=== PATIENT | male | born 1965 | race Caucasian/White ===

== ENCOUNTER → 2021-07-27 10:37 | Outpatient (CLI) | payer OTHER, SELFPAY ==
[2021-07-27 11:49] LABS: Basophils Absolute Auto 0 /uL (0-100); Basophils Percent Auto 0.6 % (0-2); Eosinophils Absolute Auto 100 /uL (0-450); Eosinophils Percent Auto 2.8 % (2-4); Hematocrit 53.8 % (41-53); Hemoglobin 18.6 g/dL (13.5-17.5); Lymphocytes Absolute Auto 1500 /uL (1100-4500); Lymphocytes Percent Auto 28.5 % (25-40); Mean Corpuscular HGB Conc 34.6 % (30-36); Mean Corpuscular Hemoglobin 30.7 PG (26-34); Mean Corpuscular Volume 88.9 fL (80-100); Monocytes Absolute Auto 400 /uL (0-900); Monocytes Percent Auto 7.7 % (3-14); Neutrophils Absolute Auto 3300 /uL (1500-7000); Neutrophils Percent Auto 60.4 % (50-75); Platelet Count 169 X10^3/uL (150-400); Red Blood Cell Count 6.05 X10^6/uL (4.5-5.9); Red Cell Distribution Width 14.1 % (11.6-14.8); White Blood Cell Count 5.4 X10^3/uL (4.5-11.0)
[2021-07-27 11:50] LABS: Add Manual Diff / Slide Review SLIDE REVIEW
[2021-07-27 12:02] LABS: BUN Creatinine Ratio 16.8 (6-22); Blood Urea Nitrogen 22 mg/dL (9-20); Calcium 9.2 mg/dL (8.4-10.2); Carbon Dioxide 29 mmol/L (22-32); Chloride 106 mmol/L (98-107); Estimated Glomerular Filt Rate 56.6 mL/min (>60); Glucose 97 mg/dL (70-100); HEMOLYSIS 21 (0-50); Potassium 4.6 mmol/L (3.4-5.1); Sodium 143 mmol/L (137-145)
[2021-07-27 12:13] LABS: RBC Morphology Normal Morphology
[2021-07-27 12:59] LABS: COVID19 -Nasal RAPID Negative (Negative)
== END ==
PROVIDERS: Family Medicine Sleep Medicine; PCP Physician Assistant Medical; Referring Provider Orthopaedic Surgery Orthopaedic Surgery of the Spine; Visit Provider Orthopaedic Surgery Orthopaedic Surgery of the Spine
DX: Z01.812 Encounter for preprocedural laboratory examination (principal); Z20.822 Contact with and (suspected) exposure to COVID-19
CPT/HCPCS: 36415; 80048; 85025; 87635; 93005; C9803

== ENCOUNTER 2021-07-30 12:37 | Day surgery (SDC) | payer OTHER, SELFPAY ==
[2021-07-25 07:48] VITALS: BMI 36.6
--- NOTE | 2021-07-30 | DI.RAD.S_ITS ---
PROCEDURE: XR LUMBAR SPINE 2-3V INDICATIONS: L5-S1 MICRODISECTOMY TECHNIQUE: 2 operative views of the lumbar spine were acquired. COMPARISON: None. FINDINGS: Operative imaging utilized for lumbar surgery demonstrates that the L5-S1 level has been localized posteriorly. IMPRESSION: Operative imaging demonstrates localization of L5-S1. Dictated by: Rick Hernandez M.D. on 07/30/2021 at 17:04 Approved by: Rick Hernandez M.D. on 07/30/2021 at 17:05
[2021-07-30 13:19] VITALS: BP 143/97; PULSE 72; RESP 16; TEMP 37.2; O2SAT 100; BMI 34.2
[2021-07-30] MEDS: LACTATED RINGERS 1,000 ML 42 ML IV ×2 (13:45→16:11)
--- NOTE | 2021-07-30 15:08 | PM.PREOP ---
Pre-operative Note COVID-19 COVID-19 status: Negative Result date/Date tested (Pos, Neg/Pending): 07/29/21 Criteria for continued procedure: Expected advancement of disease process, Possibility delay results in more complex future surgery or treatment, Increased loss of function, Continuing or worsening of significant or severe pain, Deterioration of the patient's condition or overall health and Delay expected to result in less-positive ultimate med/surg outcome Interval Note History & Physical reviewed/Exam performed by Physician: Yes Changes to H&P: No
[2021-07-30] MEDS: CEFAZOLIN 2 GM/20 ML SYRINGE IV (15:45)
--- NOTE | 2021-07-30 16:03 | SUR.OPER ---
Prone on spine table, head in foam head support, padded chest and pelvic supports, gel pad at knees, lower legs supported by pillows; nipples, genitalia and toes free of pressure, arms secured on foam padded arm boards at <90 degrees abduction. Tape over blanket at thigh secured to table. Gel pad placed between bilateral heels and placed between patients bilateral lateral thighs and bed frame.
[2021-07-30] MEDS: BUPIVACAINE 0.25% (PF) 30 ML, EPINEPHrine 0.3 MG INJ (16:13)
--- NOTE | 2021-07-30 16:38 | P.OP_ITS ---
Operative Date/Time/Diagnoses Date of procedure: 07/30/21 Time of procedure: 15:40 Pre-op diagnosis: 1. L5-S1 disc herniation 2. Lumbar radiculopathy Post-op diagnosis: same Procedure & Clinicians Procedure: 1. L5-S1 right microdiscectomy 2. Utilization of microsurgical technique and operating microscope Same procedure as scheduled: Yes Indications: Patient has been having chronic back pain and worsening lumbar radiculopathy. Patient failed multiple conservative management with worsening pain weakness and numbness in her lower extremity. Patient has been having difficulty performing activity of daily living. After discussing risks benefits of treatment options, patient elected proceed with surgery. Surgeon: Alfredo Sampson Restaurant Associate: Sary Oliver Click Yes if Unassisted: No Anesthesia Type: General Operative Notes Closure Type: primary Specimen(s): none sent Applied: catheter Estimated Blood Loss (mL): 5 Blood products transfused: none Procedure in detail: Patient was seen in the preoperative area. Risks and benefits of the surgery was discussed with the patient. Informed consent was obtained from the patient and placed in the chart. Surgical site was marked. Patient was taken to the operative room. General anesthesia was administered. Prophylactic antibiotic was given to the patient less than 30 min before the incision was made. Patient was placed into a prone position on the Roman table. Patient's back was then prepped and draped in the sterile fashion. Time-out was performed at this time. Using AP and lateral C-arm imaging the interval between L5-S1 was identified and marked on patient's back. A 1 inch incision 1 in from midline was made on the right side. The fascia was incised in line with skin incision. Globus MARS retractors was placed inside the incision and docked onto the L5 lamina. Using microsurgical technique and operating microscope, a L5 laminotomy was performed using a Kerrison rongeur. Liagamentum flavum was resected at the site of the laminotomy. The disc space at L5-S1 was identified. Microdiscectomy was performed by incising the annulus with #11 blade. Microcurettes and pituitary was used to removed herniated disc fragments of disc from the epidural space. Patient was found to have significant amount of epidural lipomatosis once the epidural space was entered. The lipomas was causing additional impingement on the thecal sac. The epidural lipomatosis was carefully resected using pituitary and Kerrison rongeur to further decompress the epidural space. After the microdiskectomy was completed, the area medial lateral superior and inferior to the area of the microdiskectomy was inspected and explored using a micro curette. No other impinging structure was identified. The wound was then irrigated with sterile normal saline. 40 mg Depo-Medrol was placed into the epidural space. The deep fascia was closed with 1-0 Vicryl. The subcutaneous tissue was closed with 2-0 Vicryl. The skin was closed with 4-0 Monocryl. Patient tolerated the procedure well. There were no complications. Patient was transferred recovery room in stable condition. Complications: none Post-operative Condition: stable Disposition: PACU Plan for aftercare: Discharge to home
[2021-07-30 16:50] VITALS: BP 162/99; PULSE 108; RESP 15; TEMP 36.6; O2SAT 94
[2021-07-30 17:05] VITALS: BP 140/94; PULSE 98; RESP 16; O2SAT 96
[2021-07-30] MEDS: OXYCODONE/ACETAMINOPHEN 5/325 TABLET 1 TAB PO (17:09)
[2021-07-30 17:14] VITALS: BP 144/90; PULSE 90; RESP 12; TEMP 36.3; O2SAT 97
--- NOTE | 2021-07-30 17:17 | SUR.PHASEII ---
Discharge instructions reviewed with pt and he verbalized understanding.
== END 2021-07-30 17:35 | disposition home or self-care (01) ==
PROVIDERS: PCP Physician Assistant Medical; Referring Provider Orthopaedic Surgery Orthopaedic Surgery of the Spine; Visit Provider Orthopaedic Surgery Orthopaedic Surgery of the Spine
PROC: (CPT 63030; principal; 2021-07-30 13:45)
DX: M51.17 Intervertebral disc disorders with radiculopathy, lumbosacral region (principal); M48.062 Spinal stenosis, lumbar region with neurogenic claudication; I10 Essential (primary) hypertension
CPT/HCPCS: 63030; 72100; 76000; J0171; J0690; J1100; J2250; J2405; J2704; J2920; J3010